=== PATIENT | male | born 1975 | race Caucasian/White ===

== ENCOUNTER 2019-12-16 08:36 | Observation (INO) | payer OTHER, SELFPAY ==
[2019-12-16] VITALS (8 sets, daily range): BP systolic 128–185; BP diastolic 75–115; PULSE 73–103; RESP 14–21; TEMP 36.4–36.9; O2SAT 96–99; BMI 22.9
--- NOTE | 2019-12-16 08:51 | ECG_ITS ---
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 Measurements Intervals [place] Rate: 93 P: 71 AL: 180 QRS: 98 QRSD: 84 T: 46 QT: 334 QTc: 417 Interpretive Statements SINUS RHYTHM BORDERLINE RIGHT AXIS DEVIATION [QRS AXIS > 90] POSSIBLE RIGHT VENTRICULAR CONDUCTION DELAY [RSR (QR) IN V1/V2] No previous ECG available for comparison Electronically Signed On 12-16-2019 21:13:39 CDT by Kristopher Haro M.D. [id number]
--- NOTE | 2019-12-16 08:51 | XRR_ITS ---
PROCEDURE INFORMATION: Exam: XR Chest, 1 View Exam date and time: 12/16/2019 9:15 AM Age: 44 years old Clinical indication: Pain; Other: Chest tightness; Additional info: Left upper anterior chest pain this am TECHNIQUE: Imaging protocol: XR of the chest Views: 1 view. COMPARISON: No relevant prior studies available. FINDINGS: Lungs: Unremarkable. No consolidation. Pleural space: Unremarkable. No pleural effusion. No pneumothorax. Heart/Mediastinum: Unremarkable. No cardiomegaly. Bones/joints: Unremarkable. XR/XR chest 1V portable [id number] IMPRESSION: No acute findings.
--- NOTE | 2019-12-16 08:54 | W.ED.CHESTPA ---
HPI - Chest Pain General: Chief Complaint: Chest Pain Stated Complaint: CHEST TIGHTNESS Time Seen by Provider: 12/16/19 08:40 History of Present Illness: HPI narrative: Patient began to experience pain and tightness in the left side of his chest last night while at rest. He did have some shortness of breath nausea and diaphoresis. Symptoms continued this morning along with lightheadedness so the patient came to the emergency department. He appears to be in no distress but continues to have the pain and pressure which is well localized in the left lower chest. MD complaint: chest pain, chest heaviness and chest discomfort Onset (ago): day(s) (1) Timing of current episode: constant Prior episodes: No Onset: during rest Pain location: left chest Pain radiation: none Severity: moderate Quality: tightness and heaviness Relieving factors: nothing Exacerbating factors: nothing Review of Systems General: Reports: 10 or more systems reviewed and unremarkable except in HPI and below Card: Reports: chest pain [facility] PFSH: Social History Smoking and tobacco status: never smoked Physical Exam Const: COMMON NORMALS: no acute distress, healthy appearing and well nourished GENERAL APPEARANCE: cooperative and well developed HENMT: COMMON NORMALS: normocephalic and atraumatic HEAD & SCALP: normal to inspection, normocephalic and atraumatic Eye: GENERAL EYE: appearance normal, both eyes and all related structures Neck/C-Spine: COMMON NORMALS: full ROM, no lymphadenopathy and no meningeal signs GENERAL: Yes normal visual inspection CERVICAL SPINE: Yes cervical ROM normal and Yes normal cervical lordosis Chest: COMMONS NORMALS: normal inspection of the chest and normal palpation of entire chest wall Resp: COMMON NORMALS: normal respiratory effort, clear to auscultation bilaterally and percussion normal AUSCULTATION: clear to auscultation bilaterally PERCUSSION: percussion normal Cardio: COMMON NORMALS: regular rate, regular rhythm, S1 normal heart sound present and S2 normal heart sound present JUGULAR VENOUS DISTENTION: no JVD PALPATION: normal PMI RATE: regular rate RHYTHM: regular rhythm HEART SOUNDS: S1 normal heart sound present and S2 normal heart sound present GI: COMMON NORMALS: Soft to palpation and No hepatosplenomegaly present INSPECTION: Yes normal to inspection PALPATION: Yes Soft to palpation and Yes No hepatosplenomegaly present PERCUSSION: normal to percussion : COMMON NORMALS: Yes no CVA tenderness BLADDER/KIDNEY EXAM: Yes no CVA tenderness Back/Pelvis: COMMON NORMALS: no CVA tenderness, thoracic and lumbar spine normal to inspection and thoraco-lumbar ROM normal Extremity: COMMON NORMALS: normal to inspection, full ROM and capillary refill normal Neuro: MENINGEAL SIGNS: Yes no meningeal signs Skin: COMMON NORMALS: no rashes or lesions noted, no wounds and turgor normal GENERAL SKIN EXAM: no rashes or lesions noted, elasticity normal and turgor normal LESIONS: no lesions RASHES: no rashes TRAUMA: no lacerations or abrasions HAIR: normal NAILS: normal Course Vital Signs: Vital signs: Vital Signs Temperature 97.5 F L 12/16/19 08:41 Pulse Rate 79 12/16/19 09:55 Respiratory Rate 14 12/16/19 09:55 Blood Pressure 157/103 12/16/19 09:55 Pulse Oximetry 97 12/16/19 09:55 MDM - Chest Pain Lab Data: Labs: Lab Results 12/16/19 12/16/19 12/16/19 Range/Units 09:02 09:02 09:02 WBC 6.8 (4.0-10.0) 10^3/ uL RBC 5.42 H (4.1-5.3) 10^6/u L Hgb 16.1 (11.7-16.6) g/dL Hct 48.2 (42.0-52.0) % MCV 88.9 (80-94) fL MCH 29.7 (28.0-34.0) pg MCHC 33.4 (30.0-36.0) g/dL RDW 12.4 (12.1-15.1) % Plt Count 234 (130-400) 10^3/c mm MPV 8.6 (7.4-10.4) fL Neut % (Auto) 60.3 % Lymph % (Auto) 28.7 % Hernando % (Auto) 7.8 % Eos % (Auto) 1.9 % Baso % (Auto) 1.0 % Neut # (Auto) 4.1 (1.8-7.7) 10^3/u L Lymph # (Auto) 2.0 (0.8-4.8) 10^3/u L Hernando # (Auto) 0.5 (0.2-0.9) 10^3/u L Eos # (Auto) 0.1 (0.0-0.8) 10^3/u L Baso # (Auto) 0.1 (0.0-0.1) 10^3/u L Nucleated RBC % (a uto) 0 % Nucleated RBCs # 0.0 /100WBC D-Dimer 0.17 (0-0.59) ug/mIFE U Sodium 136 (136-145) mmol/L Potassium 3.6 (3.5-5.1) mmol/L Chloride 96 L (98-107) mmol/L Carbon Dioxide 23 (22-29) mmol/L Anion Gap 20.6 H (5-19) BUN 13 (6-20) mg/dL Creatinine 0.8 (0.7-1.2) mg/dL GFR Calculation 104.1 (90-130) mL/min Glucose 109 (65-115) mg/dL Calculated Osmolal ity 279 L (285-295) mOsm/k g Calcium 9.9 (8.5-10.5) mg/dL Total Bilirubin 0.4 (0.15-1.2) mg/dL AST 34 (0-40) U/L ALT 49 H (0-41) U/L Alkaline Phosphata se 118 (40-130) IU/L Troponin T Baselin e (0-15) ng/L NT-Pro-B Natriuret Pep 5 (0-125) pg/mL Total Protein 8.0 (6.6-8.7) g/dL Albumin 5.1 (3.5-5.2) g/dL Globulin 2.9 (1.3-4.6) g/dL 12/15/ Range/Units 09:02 WBC (4.0-10.0) 10^3/ uL RBC (4.1-5.3) 10^6/u L Hgb (11.7-16.6) g/dL Hct (42.0-52.0) % MCV (80-94) fL MCH (28.0-34.0) pg MCHC (30.0-36.0) g/dL RDW (12.1-15.1) % Plt Count (130-400) 10^3/c mm MPV (7.4-10.4) fL Neut % (Auto) % Lymph % (Auto) % Hernando % (Auto) % Eos % (Auto) % Baso % (Auto) % Neut # (Auto) (1.8-7.7) 10^3/u L Lymph # (Auto) (0.8-4.8) 10^3/u L Hernando # (Auto) (0.2-0.9) 10^3/u L Eos # (Auto) (0.0-0.8) 10^3/u L Baso # (Auto) (0.0-0.1) 10^3/u L Nucleated RBC % (a uto) % Nucleated RBCs # /100WBC D-Dimer (0-0.59) ug/mIFE U Sodium (136-145) mmol/L Potassium (3.5-5.1) mmol/L Chloride (98-107) mmol/L Carbon Dioxide (22-29) mmol/L Anion Gap (5-19) BUN (6-20) mg/dL Creatinine (0.7-1.2) mg/dL GFR Calculation (90-130) mL/min Glucose (65-115) mg/dL Calculated Osmolal ity (285-295) mOsm/k g Calcium (8.5-10.5) mg/dL Total Bilirubin (0.15-1.2) mg/dL AST (0-40) U/L ALT (0-41) U/L Alkaline Phosphata se (40-130) IU/L Troponin T Baselin e 6 (0-15) ng/L NT-Pro-B Natriuret Pep (0-125) pg/mL Total Protein (6.6-8.7) g/dL Albumin (3.5-5.2) g/dL Globulin (1.3-4.6) g/dL Discharge Plan Discharge Patient Disposition: Admitted As Inpatient Admit Provider: Chrystal Abraham Clinical Impression: Unstable angina pectoris Condition: Stable Coding Level of Care Code ED Combustion Analyst for Chg Fwd Exam Comprehensive
[2019-12-16] MEDS: nitroglycerin 0.4 mg sublingual Tablet SUBLINGUAL (09:01)
--- NOTE | 2019-12-16 09:07 | PC.NURSE ---
Pt states chest pain went from a 2/10 to a 1/[address] Weaver informed.
[2019-12-16] MEDS: nitroglycerin 1 gm/inch oint Pkt 1 INCH TOPICAL (09:16)
[2019-12-16 09:18] LABS: Basophils # 0.1 10^3/uL (0.0-0.1); Eosinophils # 0.1 10^3/uL (0.0-0.8); Eosinophils % 1.9 %; Hematocrit 48.2 % (42.0-52.0); Hemoglobin 16.1 g/dL (11.7-16.6); Lymphocytes % 28.7 %; Mean Corpuscular HGB Conc 33.4 g/dL (30.0-36.0); Mean Corpuscular Hemoglobin 29.7 pg (28.0-34.0); Mean Corpuscular Volume 88.9 fL (80-94); Mean Platelet Volume 8.6 fL (7.4-10.4); Monocytes # 0.5 10^3/uL (0.2-0.9); Monocytes % 7.8 %; Neutrophils # 4.1 10^3/uL (1.8-7.7); Neutrophils % 60.3 %; Nucleated Red Blood Cells % 0 %; Platelet Count 234 10^3/cmm (130-400); Red Blood Count 5.42 10^6/uL (4.1-5.3); Red Cell Distribution Width 12.4 % (12.1-15.1); White Blood Count 6.8 10^3/uL (4.0-10.0)
[2019-12-16 09:35] LABS: Troponin(5th) Baseline 6 ng/L (0-15)
[2019-12-16 09:40] LABS: D Dimer 0.17 ug/mIFEU (0-0.59)
[2019-12-16 09:44] LABS: Alanine Aminotransferase 49 U/L (0-41); Albumin Level 5.1 g/dL (3.5-5.2); Alkaline Phosphatase 118 IU/L (40-130); Anion Gap 20.6 (5-19); Aspartate Amino Transferase 34 U/L (0-40); Blood Urea Nitrogen 13 mg/dL (6-20); Calcium 9.9 mg/dL (8.5-10.5); Carbon Dioxide 23 mmol/L (22-29); Chloride 96 mmol/L (98-107); Globulin 2.9 g/dL (1.3-4.6); Glomerular Filtration Rate 104.1 mL/min (90-130); Glucose 109 mg/dL (65-115); NT Pro B Type Natriuretic Pept 5 pg/mL (0-125); Osmolality Calculated 279 mOsm/kg (285-295); Potassium 3.6 mmol/L (3.5-5.1); Sodium 136 mmol/L (136-145); Total Bilirubin 0.4 mg/dL (0.15-1.2)
--- NOTE | 2019-12-16 10:51 | ECG_ITS ---
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 Measurements Intervals [place] Rate: 80 P: 55 VA: 166 QRS: 84 QRSD: 87 T: 37 QT: 359 QTc: 414 Interpretive Statements SINUS RHYTHM Compared to ECG 12/16/2019 08:51:36 No significant changes Electronically Signed On 12-16-2019 21:14:33 CDT by Kristopher Haro M.D. [email or web address] [email or web address] [email or web address] medical centerTissueInformaticsuniversity hospitals portage [facility].[email or web address]/store/OM/[id number]
--- NOTE | 2019-12-16 11:03 | P.HP_ITS ---
Providers/Chief Complaint Admitting Physician: Chrystal Abraham DO Chief Complaint: CHEST TIGHTNESS History of Present Illness Eliezer Guadalupe is a 44 year old male that is otherwise in good health that presented to the emergency department for chest pressure. Patient stated that he was sitting at his desk this morning doing paperwork when he began experiencing chest pressure in the left side of his chest. He stated that with this chest pressure he had dizziness and sweating and clamminess in his hands. Patient reported he came to the ER for further evaluation and treatment due to the pain. He reports that he was previously diagnosed with hypertension was on medication approximately 10 years ago but was taken off by his primary care provider as his blood pressures had remained normal. Patient stated that he is otherwise fairly active, has not noticed any dyspnea on exertion, no exertional chest pain or pressure. He reports that it felt as a heaviness on his chest, no sharp discomfort. Patient denies any recent heavy lifting or increasing physical activity. He denies any recent illness, no fevers or chills, no expo sure to anyone under investigation are positive for CO VID-19. Patient states that nitroglycerin did improve his pain. Patient was seen and evaluated in the emergency department due to left-sided ch est pressure with associated dizziness and diaphoresis with improvement with nitroglycerin hospitalist was called for observation placement. Review of Systems Const: Denies: fever(s) or chills Eyes: Denies: change in vision ENMT: Denies: nasal congestion Card: Reports: chest pain; Denies: palpitations or edema Resp: Denies: dyspnea, productive cough or hemoptysis GI: Denies: abdominal pain, nausea, vomiting, diarrhea, constipation, hematochezia or melena : Denies: dysuria or hematuria Musc: Denies: extremity pain or muscle cramps Skin/Breast: Denies: rash or new lesions Neuro: Denies: headache(s) or dizziness Psych: Denies: anxiety or depression Endo: Denies: polyuria or hot flashes Rivera/Lymph: Denies: easy bruising or easy bleeding Medications/Allergies Home Medications Medication Instructions Recorded Confirmed Last Taken Type No Known Home Medications 12/16/19 12/16/19 Unknown History Allergies Allergy/AdvReac Type Severity Reaction Status Date / Time No Known Allergies Allergy Verified 12/16/19 08:51 PFSH Acute PFSH: Medical History (Updated 12/16/19 @ 11:06 by Chrystal Abraham DO) Hypertension Surgical History (Updated 12/16/19 @ 11:06 by Chrystal Abraham DO) No pertinent past surgical history Family History (Updated 12/16/19 @ 11:07 by Chrystal Abraham DO) Father Atrial fibrillation Grandmother Stroke Social History (Updated 12/16/19 @ 11:08 by Chrystal Abraham DO) Smoking and tobacco status: never smoked Alcohol intake: current Substance/Drug Use: never Marital status: Vitals/I&O/Wt Last Vital Signs Temp 97.5 F L 12/16/19 08:41 Pulse 79 12/16/19 09:55 Resp 14 12/16/19 09:55 BP 157/103 12/16/19 09:55 Pulse Ox 97 12/16/19 09:55 Weight last 48 hrs Weight 72.575 kg Physical Exam Const: COMMON NORMALS: patient oriented x3 and alert GENERAL APPEARANCE: cooperative ORIENTATION/CONSCIOUSNESS: Yes awake, Yes oriented to person, Yes oriented to place and Yes oriented to time HENMT: COMMON NORMALS: normocephalic and atraumatic HEAD & SCALP: normocephalic and atraumatic Eye: COMMON NORMALS: Equal, round and reactive pupils present PUPIL: Yes Equal, round and reactive pupils present Neck/C-Spine: COMMON NORMALS: supple GENERAL: Yes normal visual inspection Chest: OTHER: No pain with palpation over the anterior chest wall Resp: COMMON NORMALS: normal respiratory effort and clear to auscultation bilaterally EFFORT & INSPECTION: Yes able to speak in complete sentences AUSCULTATION: clear to auscultation bilaterally, no rhonchi and no wheezes Cardio: COMMON NORMALS: regular rate, regular rhythm and No murmurs present (Cardio) RATE: regular rate RHYTHM: regular rhythm GI: COMMON NORMALS: Soft to palpation and non-tender INSPECTION: No abdo rosales distension AUSCULTATION: Yes normoactive bowel sounds PALPATION: Yes Soft to palpation : COMMON NORMALS: Yes no CVA tenderness BLADDER/KIDNEY EXAM: Yes no CVA tenderness Back/Pelvis: COMMON NORMALS: no CVA tenderness Extremity: COMMON NORMALS: no clubbing, cyanosis or edema and no calf tenderness Neuro: COMMON NORMALS: patient oriented x3, CN's II-XII intact bilaterally, moves all extremities and no focal motor deficits SENSORIUM/ORIENTATION: Yes alert, Yes oriented to person, Yes oriented to place and Yes oriented to time SPEECH: speech normal Psych: COMMON NORMALS: mental status grossly normal and cooperative Skin: COMMON NORMALS: no rashes or lesions noted GENERAL SKIN EXAM: no rashes or lesions noted Data : 12/16/19 09:02 12/16/19 09:02 CXR: I personally reviewed and interpreted this imaging study as follows: Radiologist's impression: FINDINGS: Lungs: Unremarkable. No consolidation. Pleural space: Unremarkable. No pleural effusion. No pneumothorax. Heart/Mediastinum: Unremarkable. No cardiomegaly. Bones/joints: Unremarkable. XR/XR chest 1V portable [id number] IMPRESSION: No acute findings. A&P Assessment and plan (1) Chest pain: Chest pain located over the left anterior chest wall with associated diaphoresis and dizziness Improved with nitro [place] Placed on observation SHELBY as needed for pain with serial EKG and troponin Plan for treadmill stress test today, patient remains n.p.o. at this time for treadmill stress test Discussed with patient and his , they verbalized understanding agree with plan Patient is hypertensive in the emergency department, discussed with him if blood pressures remain elevated he will likely require antihypertensive therapy. Status: Acute (2) Hypertension: Patient reports previously he was on blood pressure medication, cannot recall his prior medication Patient reports that he was taken off of the medication approximately 10 years ago as it is a very low-dose and his blood pressures were well controlled Patient has elevated blood pressure in the emergency department with concern for chest pain, if blood pressure remains elevated will start on lisinopril 10 mg daily. Status: Acute Additional A&P Information Patient to be placed on observation with serial EKG and troponin, oxygen per protocol, telemetry with plan for treadmill stress test today. Attestations Medical Necessity Statement*: Observation due to chest pain, expected stay less than 2 midnights Coding Level of Care Code Acute Direct Entry Midwife for Romana Fwd Exam Comprehensive Diagnoses Chest pain R07.9 Hypertension I10
[2019-12-16 11:32] LABS: Troponin 5 2HR Delta 0 ABS# (0-10)
--- NOTE | 2019-12-16 11:40 | ECG_ITS ---
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 Interpretive Statements NAME OF STUDY: TREADMILL STRESS TEST INDICATION: Chest Pain, EXERCISE DATA: The patient was exercised by Jhonny protocol. Baseline heart rate was 81 beats per minute. Baseline blood pressure was 156/87 millimeters of mercury. Target heart rate was 174 beats per minute. Maximum heart rate achieved was 170, which was 97% of the target heart rate. Maximum blood pressure was 217/93 millimeters of mercury. Total exercise time was 10 minutes 30 seconds. Maximum METs achieved was 13.5, maximum VO2 was 47.3. The reason for ending the test was maximum effort achieved. The patient complained of shortness of breath during the stress test, which then resolved at the end of the test. ELECTROCARDIOGRAM: BASELINE: Sinus rhythm, right axis, possible anterior wall myocardial infarction otherwise lead placement can result in poor R wave progression, no significant ST-T changes at the baseline noted. EXERCISE: At the peak exercise level, no significant ST-T changes suggestive of ischemia noted. RECOVERY: During the recovery period, heart rate dropped appropriately. No significant ST-T changes in the recovery suggestive of ischemia noted. CONCLUSION: 1. Exercise capacity good. 2. Heart rate response was appropriate. 3. Blood pressure response was hypertensive. 4. Symptoms not suggestive of ischemia. 5. Electrocardiogram portion of the stress test was not suggestive of ischemia. Electronically Signed On 12-20-2019 12:08:22 CDT by Kristopher Haro M.D. [email or web address] [email or web address] [email or web address] [email or web address]/store/[id number]
[2019-12-16] MEDS: sodium chloride 0.9% 1,000 ML 30 ML IV (12:01)
[2019-12-16] MEDS: lisinopril 10 mg Tablet PO (12:02)
[2019-12-16 12:22] LABS: Chol HDL Ratio 3.84 mg/dL (1.0-5.00); Cholesterol 238 mg/dL (0-200); HDL Cholesterol 62 mg/dL (60-100); LDL Cholesterol Calculated 151 mg/dL (50-129); LDL HDL Ratio 2.44 RATIO (0.00-3.22); Triglycerides 124 mg/dL (0-150)
[2019-12-16 14:09] LABS: INR 0.81 (0.8-1.2)
--- NOTE | 2019-12-16 15:08 | P.DS_ITS ---
Discharge Providers Date of Admission: 12/16/19 10:31 Date of Discharge: December 16, 2019 Attending Provider at Admission: Chrystal Abraham DO Attending Provider at Discharge: Chrystal Abraham DO Diagnoses at Discharge Discharge Diagnosis (1) Chest pain: Status: Acute (2) Hypertension: Status: Acute Reason for Visit Reason for Visit: CHEST TIGHTNESS Hospital Course Hospital Course: Patient was seen and evaluated in the emergency department due to concern for chest pressure. Placed on observation and kept n.p.o. for stress test. Patient had treadmill stress test performed which was read by cardiology, no evidence of any ischemic changes. Patient improved. He was started on lisinopril 10 mg daily due to concern for elevated blood pressure. He was also noted to have elevated cholesterol, this was discussed with patient and diet and lifestyle modifications recommended. Discussed with patient to follow-up with his primary care provider and if he continues to have elevated cholesterol would recommend starting statin medication. Discussed with patient negative stress test and plan for discharge to home with close follow-up, he verbalized understanding and agreed with plan. Physical Exam Const: COMMON NORMALS: patient oriented x3 and alert GENERAL APPEARANCE: cooperative ORIENTATION/CONSCIOUSNESS: Yes awake, Yes oriented to person, Yes oriented to place and Yes oriented to time HENMT: COMMON NORMALS: normocephalic and atraumatic HEAD & SCALP: normocephalic and atraumatic Eye: COMMON NORMALS: Equal, round and reactive pupils present PUPIL: Yes Equal, round and reactive pupils present Neck/C-Spine: COMMON NORMALS: supple GENERAL: Yes normal visual inspection Chest: OTHER: No pain with palpation over the anterior chest wall Resp: COMMON NORMALS: normal respiratory effort and clear to auscultation bilaterally EFFORT & INSPECTION: Yes able to speak in complete sentences AUSCULTATION: clear to auscultation bilaterally, no rhonchi and no wheezes Cardio: COMMON NORMALS: regular rate, regular rhythm and No murmurs present (Cardio) RATE: regular rate RHYTHM: regular rhythm GI: COMMON NORMALS: Soft to palpation and non-tender INSPECTION: No abdominal distension AUSCULTATION: Yes normoactive bowel sounds PALPATION: Yes Soft to palpation Extremity: COMMON NORMALS: no clubbing, cyanosis or edema and no calf tenderne ss Neuro: COMMON NORMALS: patient oriented x3, CN's II-XII intact bilaterally, moves all extremities and no focal motor deficits SENSORIUM/ORIENTATION: Yes alert, Yes oriented to person, Yes oriented to place and Yes oriented to time SPEECH: speech normal Psych: COMMON NORMALS: mental status grossly normal and cooperative Skin: COMMON NORMALS: no rashes or lesions noted GENERAL SKIN EXAM: no rashes or lesions noted Discharge Data Data Completed and Pending: Completed Studies During Hospitalization Category Date Time Status Cardiac Stress Te st Request Routine Exams 12/16/19 11:40 Draft XR chest 1V harlan ble [id number] Stat Exams 12/16/19 08:51 Completed Pending at discharge Category Date Time Status Troponin(5th) 6 h our. Timed Lab 12/16/19 14:51 Ordered Labs from last 24 hours 12/16/19 12/16/19 12/16/19 11:02 09:02 09:02 WBC RBC Hgb Hct MCV MCH MCHC RDW Plt Count MPV Neut % (Auto) Lymph % (Auto) [place] % (Auto) Eos % (Auto) Baso % (Auto) Neut # (Auto) Lymph # (Auto) [place] # (Auto) Eos # (Auto) Baso # (Auto) Nucleated RBC % (a uto) Nucleated RBCs # PT 11.40 INR 0.81 D-Dimer Sodium Potassium Chloride Carbon Dioxide Anion Gap BUN Creatinine GFR Calculation Glucose Calculated Osmolal ity Calcium Total Bilirubin AST ALT Alkaline Phosphata se Troponin T Baselin e Troponin T [address] [place] 6.00 Delta Troponin T 0 NT-Pro-B Natriuret Pep Total Protein Albumin Globulin Triglycerides 124 Cholesterol 238 H LDL Cholesterol, C alc 151 H HDL Cholesterol 62 LDL/HDL Ratio 2.44 Cholesterol/HDL Ra dandre 3.84 12/16/19 12/16/19 12/16/19 09:02 09:02 09:02 WBC RBC Hgb Hct MCV MCH MCHC RDW Plt Count MPV Neut % (Auto) Lymph % (Auto) [place] % (Auto) Eos % (Auto) Baso % (Auto) Neut # (Auto) Lymph # (Auto) [place] # (Auto) Eos # (Auto) Baso # (Auto) Nucleated RBC % (a uto) Nucleated RBCs # PT INR D-Dimer 0.17 Sodium 136 Potassium 3.6 Chloride 96 L Carbon Dioxide 23 Anion Gap 20.6 H BUN 13 Creatinine 0.8 GFR Calculation 104.1 Glucose 109 Calculated Osmolal ity 279 L Calcium 9.9 Total Bilirubin 0.4 AST 34 ALT 49 H Alkaline Phosphata se 118 Troponin T Baselin e 6 Troponin T [address] [place] Delta Troponin T NT-Pro-B Natriuret Pep 5 Total Protein 8.0 Albumin 5.1 Globulin 2.9 Triglycerides Cholesterol LDL Cholesterol, C alc HDL Cholesterol LDL/HDL Ratio Cholesterol/HDL Ra dandre 12/16/19 09:02 WBC 6.8 RBC 5.42 H Hgb 16.1 Hct 48.2 MCV 88.9 MCH 29.7 MCHC 33.4 RDW 12.4 Plt Count 234 MPV 8.6 Neut % (Auto) 60.3 Lymph % (Auto) 28.7 [place] % (Auto) 7.8 Eos % (Auto) 1.9 Baso % (Auto) 1.0 Neut # (Auto) 4.1 Lymph # (Auto) 2.0 [place] # (Auto) 0.5 Eos # (Auto) 0.1 Baso # (Auto) 0.1 Nucleated RBC % (a uto) 0 Nucleated RBCs # 0.0 PT INR D-Dimer Sodium Potassium Chloride Carbon Dioxide Anion Gap BUN Creatinine GFR Calculation Glucose Calculated Osmolal ity Calcium Total Bilirubin AST ALT Alkaline Phosphata se Troponin T Baselin e Troponin T [address] [place] Delta Troponin T NT-Pro-B Natriuret Pep Total Protein Albumin Globulin Triglycerides Cholesterol LDL Cholesterol, C alc HDL Cholesterol LDL/HDL Ratio Cholesterol/HDL Ra dandre Vitals: Last Vital Signs Temp 98.5 F 12/16/19 11:40 Pulse 103 H 12/16/19 13:00 Resp 18 12/16/19 13:00 BP 128/80 12/16/19 13:00 Pulse Ox 99 12/16/19 11:40 Discharge Plan Discharge Patient Disposition: Home, Self-Care Condition: Stable Prescriptions: New lisinopril 10 mg Tablet 10 mg PO DAILY 30 Days Qty: 30 RF: 0 nitroglycerin [Nitrostat] 0.4 mg Tablet, Sublingual 0.4 mg sublingual Q5M PRN (Reason: Chest Pain) 30 Days Qty: 20 RF: 0 No Action No Known Home Medications RF: 0 Discharge Orders: Discharge Order (Routine); Ordered 12/16/19 Ordered By: Chrystal Abraham Referrals: Huey Cox MD [Physician] - (You have a hospital followup with Dr. Cox at [facility] on Friday. December 19 at 3:45pm.) Discharge Diet: Low Fat Discharge Activity: Increase activity as tolerated Activity Restrictions/Additional Instructions: Follow-up with Dr. Cox as scheduled on Friday Discharge to home with lisinopril 10 mg daily, this is to take for elevated blood pressure. Elevated cholesterol, 238, normal <200. Elevated LDL 151, normal is 50-129. Recommend diet modifications and recheck with PCP, if remains elevated may require cholesterol medication Discharge to home with nitroglycerin, sublingual tablet, uses medication as needed for chest pain or pressure. Take as prescribed, if more than 2 doses are required with no improvement of chest pain please present to the emergency department Call your physician or present to the ED for any acute illness or concern Discharge Attestations Time Spent in Discharge Care*: less than 30 min Quality Metrics Clinical Quality Measures During this hospital stay, did patient experience: None Coding Level of Care Code Acute [employer]iconductor Packages Tester for Romana Gomez Diagnoses Chest pain R07.9 Hypertension I10
--- NOTE | 2019-12-16 16:28 | PC.NURSE ---
pt tolerated stress test well.discharge instructions given and explained.pt verb understanding of instructions.discharged to er entrance at this time.spouse to drive pt home.
--- NOTE | 2019-12-20 09:01 | PC.SOCIAL ---
Patient called this am. Appt was listed on DC paperwork to see Dr Cox today at 3:45pm. Patient called this am to confirm and was told he does not have an appt and he has not been to clinic in 3 years and even then was a walk in. Per patient they told him they would not be able to see him today. This nurse called and spoke with same environmental compliance officer who indicates the same as above. He has only been seen there two times last time three years ago and both were walk ins. He is not established. Patient is agreeable to seeing MOVIE PRODUCER if needed. Retail Sales Specialist willing to make appt with Grace Ibarra MOVIE PRODUCER for tomorrow at 10:30am arrival time 10:15am. Notified patient of new appointment.
--- NOTE | 2019-12-20 09:23 | PC.SOCIAL ---
Talked with and per his discharge instruction if he has taken two nitro without relief of chest pain report to ED. He has done taken the two doses this am and still having chest tightness/ pain. Suggest returning to ED and advised they will do an EKG and lab work. Depending on result may require further testing. She verbalized understanding. He will return for evaluation.
== END 2019-12-16 16:31 | disposition home or self-care (01) ==
LOC: ER 10:18 → CSU 10:45
PROVIDERS: Admitting Provider Family Medicine; Emergency Provider Family Medicine; PCP Family Medicine; Visit Provider Family Medicine
DX: R07.89 Other chest pain (principal); I10 Essential (primary) hypertension; Z82.49 Family history of ischemic heart disease and other diseases of the circulatory system; Z82.3 Family history of stroke
CPT/HCPCS: 12345; 36415; 71045; 80053; 80061; 83880; 84484; 85025; 85378; 85610; 93005; 93017; 96374; 96375; 99283; 99285; G0378; J7030

== ENCOUNTER 2019-12-20 09:33 | Emergency (ER) | payer OTHER, SELFPAY ==
[2019-12-20 09:37] VITALS: BP 134/83; PULSE 83; RESP 16; TEMP 36.8; O2SAT 98; BMI 22.9
--- NOTE | 2019-12-20 10:24 | XRR_ITS ---
PROCEDURE INFORMATION: Exam: XR Chest, 1 View Exam date and time: 12/20/2019 10:47 AM Age: 44 years old Clinical indication: Chest pain; Type not specified TECHNIQUE: Imaging protocol: XR of the chest Views: Frontal portable upright view of the chest. COMPARISON: CR XR chest 1V portable [id number] 12/16/2019 9:03 AM FINDINGS: Lungs: The lungs are clear bilaterally. The pulmonary vasculature is normal. Pleural space: No pleural effusion. No pneumothorax. Heart/Mediastinum: The heart is normal in size and contour. Mediastinum: Stable. Bones/joints: Stable. XR/XR chest 1V portable [id number] IMPRESSION: No acute cardiopulmonary abnormality identified.
--- NOTE | 2019-12-20 10:24 | ECG_ITS ---
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 Measurements Intervals [place] Rate: 81 P: 52 [place]: 172 QRS: 92 QRSD: 85 T: 14 QT: 357 QTc: 416 Interpretive Statements SINUS RHYTHM BORDERLINE RIGHT AXIS DEVIATION [QRS AXIS > 90] Compared to ECG 12/16/2019 11:11:27 No significant changes Electronically Signed On 12-20-2019 16:53:30 CDT by Juanjose Alicea M.D. [id number]
[2019-12-20 10:43] LABS: Basophils # 0.1 10^3/uL (0.0-0.1); Eosinophils % 0.7 %; Hematocrit 43.9 % (42.0-52.0); Hemoglobin 14.6 g/dL (11.7-16.6); Lymphocytes % 16.3 %; Mean Corpuscular HGB Conc 33.3 g/dL (30.0-36.0); Mean Corpuscular Volume 90.3 fL (80-94); Mean Platelet Volume 8.7 fL (7.4-10.4); Monocytes # 0.4 10^3/uL (0.2-0.9); Monocytes % 6.3 %; Neutrophils # 4.5 10^3/uL (1.8-7.7); Neutrophils % 75.4 %; Nucleated Red Blood Cells % 0 %; Platelet Count 219 10^3/cmm (130-400); Red Blood Count 4.86 10^6/uL (4.1-5.3); Red Cell Distribution Width 12.6 % (12.1-15.1)
[2019-12-20 10:57] LABS: Anion Gap 18.7 (5-19); Blood Urea Nitrogen 11 mg/dL (6-20); Calcium 9.2 mg/dL (8.5-10.5); Carbon Dioxide 24 mmol/L (22-29); Chloride 100 mmol/L (98-107); Glucose 97 mg/dL (65-115); Lipase 21 U/L (13-60); Osmolality Calculated 282 mOsm/kg (285-295); Potassium 4.7 mmol/L (3.5-5.1); Sodium 138 mmol/L (136-145)
[2019-12-20 11:00] LABS: Troponin(5th) Baseline 6 ng/L (0-15)
--- NOTE | 2019-12-20 11:54 | ED_ITS ---
HPI - Chest Pain General: Chief Complaint: Chest Pain Stated Complaint: chest tightness Time Seen by Provider: 12/20/19 09:41 History of Present Illness: HPI narrative: 44-year-old male presents emergency room with complaint of chest pain. He was seen several days ago here with an episode of chest pain he had serial troponins which were negative. He also had a stress test that was negative. He had a regular exercise stress test he was discharged home on lisinopril and given sublingual nitro advised take it if he had any problems. He tolerated lisinopril well his blood pressure actually seem to be improving without any side effects from medication. This morning he had began having chest pain was sitting at his desk at rest he took 2 nitros 5 minutes apart he states with pain that is worse with at a 2 and is completely resolved now. Chest pain began 50 minutes prior to arrival the only thing he had to eat or drink this morning with some coffee and a glass of water. In his previous episode he was admitted by Dr. Abraham and also had the chest discomfort while at rest. His heart score is very low at 2. MD complaint: chest heaviness Pertinent past history: other Onset (ago): hour(s) Timing of current episode: episodic and now resolved Prior episodes: Yes Onset: during rest Pain location: substernal and left chest Pain radiation: none Severity: mild Pain scale (0-10): 2 Quality: tightness and heaviness Relieving factors: nitroglycerin Context: other (4 days ago seen in the emergency room evaluated and had negative stress test) Associated symptoms: Reports no associated symptoms; Deny abdominal pain, dyspnea, fever(s), nausea or vomiting Treatment prior to arrival: nitroglycerin (X2) Review of Systems Const: Denies: fever(s), chills, body aches, change in appetite, fatigue or malaise ENMT: Denies: throat pain, ear or mastoid pain, nasal discharge or nasal congestion Card: Denies: chest pain, edema, dyspnea on exertion or orthopnea Resp: Denies: dyspnea, productive cough or non-productive cough GI: Denies: abdominal pain, nausea, vomiting, hematemesis, coffee ground emesis, diarrhea, constipation, bloating, hematochezia or melena : Denies: flank pain, dysuria, urinary frequency or urinary urgency Skin/Breast: Denies: rash or pruritus PFSH ED PFSH: Medical History Hypertension Surgical History No pertinent past surgical history Family History Father Atrial fibrillation Grandmother Stroke Social History Smoking and tobacco status: never smoked Alcohol intake: current Marital status: Physical Exam Const: COMMON NORMALS: no acute distress GENERAL APPEARANCE: cooperative and comfortable ORIENTATION/CONSCIOUSNESS: Yes awake, Yes oriented to person, Yes oriented to place and Yes oriented to time HENMT: COMMON NORMALS: normocephalic, atraumatic, hearing grossly normal bilaterally, external ears normal, EAC's normal, TM's normal bilaterally, Normal nasal mucous membranes and turbinates present, moist oral mucous membranes and oropharynx normal HEAD & SCALP: normocephalic and atraumatic NOSE: Normal nasal mucous membranes and turbinates present EXTERNAL EAR: Yes external ears normal EXTERNAL AUDITORY CANAL: EAC's normal TYMPANIC MEMBRANE: TM's normal bilaterally Eye: COMMON NORMALS: Equal, round and reactive pupils present, EOMs intact bilaterally, conjunctivae normal and no scleral icterus CONJUNCTIVA: Yes conjunctivae normal PUPIL: Yes Equal, round and reactive pupils present Neck/C-Spine: COMMON NORMALS: full ROM, no lymphadenopathy, supple and no JVD Lymph: LYMPHATIC: no lymphadenopathy noted and no lymphedema noted Resp: COMMON NORMALS: normal respiratory effort, No retractions, No use of accessory muscles and clear to auscultation bilaterally AUSCULTATION: clear to auscultation bilaterally Cardio: COMMON NORMALS: no JVD, regular rate, regular rhythm and No murmurs present (Cardio) RATE: regular rate RHYTHM: regular rhythm GI: COMMON NORMALS: Soft to palpation and No hepatosplenomegaly present AUSCULTATION: Yes normoactive bowel sounds PALPATION: Yes Soft to palpation, No Tenderness to palpation present (GI), No Guarding due to palpation present (GI) and Yes No hepatosplenomegaly present Extremity: COMMON NORMALS: normal to inspection, capillary refill normal, no clubbing, cyanosis or edema, no calf tenderness and no pedal edema Neuro: SENSORIUM/ORIENTATION: Yes oriented to person, Yes oriented to place and Yes oriented to time Skin: COMMON NORMALS: no rashes or lesions noted GENERAL SKIN EXAM: no rashes or lesions noted Course Vital Signs: Vital signs: Vital Signs Temperature 98.2 F 12/20/19 09:37 Pulse Rate 70 12/20/19 14:00 Respiratory Rate 15 12/20/19 14:00 Blood Pressure 123/85 12/20/19 14:00 Pulse Oximetry 97 12/20/19 14:00 MDM - Chest Pain MDM Narrative: Medical decision making narrative: REviewed with patient waiting on second troponin. TRop sereis neg. WIll discharge home supsect GI cause. Pt asked to start ASA 81 mg and will set up fro stress testing. aLso started PPI and will have him follow up with PCP. Lab Data: Labs: Lab Results 12/20/19 12/20/19 12/20/19 Range/Units 10:30 10:30 10:30 WBC 6.0 (4.0-10.0) 10^3/ uL RBC 4.86 (4.1-5.3) 10^6/u L Hgb 14.6 (11.7-16.6) g/dL Hct 43.9 (42.0-52.0) % MCV 90.3 (80-94) fL MCH 30.0 (28.0-34.0) pg MCHC 33.3 (30.0-36.0) g/dL RDW 12.6 (12.1-15.1) % Plt Count 219 (130-400) 10^3/c mm MPV 8.7 (7.4-10.4) fL Neut % (Auto) 75.4 % Lymph % (Auto) 16.3 % [place] % (Auto) 6.3 % Eos % (Auto) 0.7 % Baso % (Auto) 1.0 % Neut # (Auto) 4.5 (1.8-7.7) 10^3/u L Lymph # (Auto) 1.0 (0.8-4.8) 10^3/u L [place] # (Auto) 0.4 (0.2-0.9) 10^3/u L Eos # (Auto) 0.0 (0.0-0.8) 10^3/u L Baso # (Auto) 0.1 (0.0-0.1) 10^3/u L Nucleated RBC % (a uto) 0 % Nucleated RBCs # 0.0 /100WBC Sodium 138 (136-145) mmol/L Potassium 4.7 (3.5-5.1) mmol/L Chloride 100 (98-107) mmol/L Carbon Dioxide 24 (22-29) mmol/L Anion Gap 18.7 (5-19) BUN 11 (6-20) mg/dL Creatinine 0.6 L (0.7-1.2) mg/dL GFR Calculation 145.0 H (90-130) mL/min Glucose 97 (65-115) mg/dL Calculated Osmolal ity 282 L (285-295) mOsm/k g Calcium 9.2 (8.5-10.5) mg/dL Troponin T Baselin e 6 (0-15) ng/L Troponin T 120 Min [place] (0-15) ng/L Delta Troponin T (0-10) ABS# Lipase 21 (13-60) U/L 12/20/19 Range/Units 12:17 WBC (4.0-10.0) 10^3/ uL RBC (4.1-5.3) 10^6/u L Hgb (11.7-16.6) g/dL Hct (42.0-52.0) % MCV (80-94) fL MCH (28.0-34.0) pg MCHC (30.0-36.0) g/dL RDW (12.1-15.1) % Plt Count (130-400) 10^3/c mm MPV (7.4-10.4) fL Neut % (Auto) % Lymph % (Auto) % [place] % (Auto) % Eos % (Auto) % Baso % (Auto) % Neut # (Auto) (1.8-7.7) 10^3/u L Lymph # (Auto) (0.8-4.8) 10^3/u L [place] # (Auto) (0.2-0.9) 10^3/u L Eos # (Auto) (0.0-0.8) 10^3/u L Baso # (Auto) (0.0-0.1) 10^3/u L Nucleated RBC % (a uto) % Nucleated RBCs # /100WBC Sodium (136-145) mmol/L Potassium (3.5-5.1) mmol/L Chloride (98-107) mmol/L Carbon Dioxide (22-29) mmol/L Anion Gap (5-19) BUN (6-20) mg/dL Creatinine (0.7-1.2) mg/dL GFR Calculation (90-130) mL/min Glucose (65-115) mg/dL Calculated Osmolal ity (285-295) mOsm/k g Calcium (8.5-10.5) mg/dL Troponin T Baselin e (0-15) ng/L Troponin T 120 Min [place] 6.00 (0-15) ng/L Delta Troponin T 0 (0-10) ABS# Lipase (13-60) U/L Discharge Plan Discharge Patient Disposition: Home, Self-Care Clinical Impression: Atypical chest pain, Hypertension, Chest pain due to GERD Condition: Stable Prescriptions: New pantoprazole 40 mg tablet,delayed release (DR/EC) 40 mg PO DAILY Qty: 30 RF: 0 No Action lisinopril 10 mg Tablet 10 mg PO DAILY 30 Days Qty: 30 RF: 0 nitroglycerin [Nitrostat] 0.4 mg Tablet, Sublingual 0.4 mg sublingual Q5M PRN (Reason: Chest Pain) 30 Days Qty: 20 RF: 0 Discharge Orders: Discharge Order (Routine); Ordered 12/20/19 Ordered By: eVrn Sims Referrals: Huey Cox MD [Primary Care Provider] - Discharge Diet: Usual diet Discharge Activity: Resume usual activity Activity Restrictions/Additional Instructions: Start pantoprazole. We will have you follow-up with your primary care doctor to recheck blood pressure within the next 3 to 5 days. If you have any further chest pain events return to the emergency room if they require nitroglycerin. Discharge Date/Time: 12/20/19 14:04 Coding Level of Care Code [employer] Delivery Consultant for Jackieg Fwd Exam Comprehensive
--- NOTE | 2019-12-20 12:24 | ECG_ITS ---
[facility] Test Date: 2019-12-20 Pat Name: Eliezer Guadalupe Department: Room: Gender: Male Airport Engineer: : 1975 Requested By: Vern Medrano Order Number: [id number] Nir MD: Juanjose Alicea M.D. Measurements Intervals [place] Rate: 70 P: 53 [place]: 178 QRS: 78 QRSD: 75 T: 24 QT: 354 QTc: 384 Interpretive Statements SINUS RHYTHM Compared to ECG 12/20/2019 09:47:45 No significant changes Electronically Signed On 12-20-2019 16:55:48 CDT by Juanjose Alicea M.D. [id number]
[2019-12-20 13:11] LABS: Troponin 5 2HR Delta 0 ABS# (0-10)
[2019-12-20 14:00] VITALS: BP 123/85; PULSE 70; RESP 15; O2SAT 97
--- NOTE | 2019-12-21 08:56 | DCPLANNER ---
mass spectrometry manager had message to speak with patient about getting established with a primary care physician. mass spectrometry manager spoke with patient, offered to get him established with a primary care physician. Patient stated that he [place] today [place] [facility] [place]
--- NOTE | 2019-12-28 15:28 | DCPLANNER ---
fabrication manager had message to schedule an out patient stress test for patient. fabrication manager faxed order to centralized scheduling, will call for appointment information.
--- NOTE | 2020-01-03 14:55 | DCPLANNER ---
Patient had a stress test scheduled for 01.04.20, and it has been cancelled.
== END 2019-12-20 14:04 | disposition home or self-care (01) ==
PROVIDERS: Emergency Provider Family Medicine; PCP Family Medicine
DX: R07.89 Other chest pain (principal); K21.9 Gastro-esophageal reflux disease without esophagitis; I10 Essential (primary) hypertension
CPT/HCPCS: 12345; 36415; 71045; 80048; 83690; 84484; 85025; 93005; 99283; 99284

== ENCOUNTER 2021-07-27 15:57 | Emergency (ER) | payer OTHER, SELFPAY ==
--- NOTE | 2021-07-27 16:04 | XR_ITS ---
WS: [id number] XR chest 1V portable [id number] REASON FOR EXAM: cp FINDINGS: The thoracic aorta is normal. The heart is normal. Minimal calcified granulomatous changes bilaterally. No active pulmonary parenchymal or pleural disease. Bony thorax intact without significant abnormality. XR/XR chest 1V portable [id number] IMPRESSION: No acute chest abnormality.
[2021-07-27 16:05] VITALS: BP 108/75; PULSE 116; RESP 16; TEMP 36.6; O2SAT 97; BMI 22.9
--- NOTE | 2021-07-27 16:33 | ECG_ITS ---
[facility] Test Date: 2021-07-27 Pat Name: Eliezer Guadalupe Department: Room: Gender: Male Study Assistant: : 1975 Requested By: Bernard Martinez Order Number: [id number] Loyola MD: Ramses Moreno M.D. Measurements Intervals [place] Rate: 109 P: 63 [place]: 136 QRS: 117 QRSD: 87 T: 39 QT: 320 QTc: 433 Interpretive Statements SINUS TACHYCARDIA POSSIBLE LEFT ATRIAL ENLARGEMENT [-0.1mV P-WAVE IN V1/V2] POSSIBLE RIGHT VENTRICULAR HYPERTROPHY [SOME/ALL OF: PROMINENT R IN V1, LATE TRANSITION, RAD, THALIA, SSS] Compared to ECG 12/20/2019 12:08:53 Atrial abnormality now present Sinus rhythm no longer present Electronically Signed On 07-27-2021 17:37:56 CHIMNEY REPAIRER by Ramses Moreno M.D. [id number]
--- NOTE | 2021-07-27 16:34 | W.ED.CHESTPA ---
Documented by User: JANIE Wilson 07/27/21 16:35 HPI - Chest Pain General: Chief Complaint: Chest Pain Stated Complaint: Heart racing and chest feeling kind of heavy Time Seen by Provider: 07/27/21 18:04 History of Present Illness: Patient complains about intermittent rapid heart rate that occurred since Friday says worse today feels some pressure in his left upper chest area and feels like his heart once a pound of his chest at times. Patient denies any recent illness. Denies any anxiety. Patient does not take any other medication besides his blood pressure medication. He said some just did not feel right in his left upper chest. He said he had an episode about a year and a half ago something similar and he had a plethora of tests done which includes a cardiac stress test and they were all negative. [facility] ED PFSH: Medical History Hypertension Surgical History No pertinent past surgical history Family History Father Atrial fibrillation Grandmother Stroke Social History Smoking and tobacco status: never smoked Alcohol intake: current Marital status: Course Vital Signs: Vital signs: Vital Signs Temperature 98.2 F 07/27/21 20:15 Pulse Rate 77 07/27/21 21:59 Respiratory Rate 18 07/27/21 21:59 Blood Pressure 135/86 07/27/21 21:59 Pulse Oximetry 99 07/27/21 21:59 MDM - Chest Pain Lab Data : 07/27/21 18:45 07/27/21 18:45 Radiology Impressions Chest X-Ray 07/27/21 16:04 IMPRESSION: No acute chest abnormality. Laboratory Results WBC 8.1 10^3/uL (4.0-10.0) 07/27/21 18:45 RBC 5.20 10^6/uL (4.1-5.3) 07/27/21 18:45 Hgb 15.7 g/dL (11.7-16.6) 07/27/21 18:45 Hct 46.3 % (42.0-52.0) 07/27/21 18:45 MCV 89.0 fl (80-94) 07/27/21 18:45 MCH 30.2 pg (28.0-34.0) 07/27/21 18:45 MCHC 33.9 g/dL (30.0-36.0) 07/27/21 18:45 RDW 12.5 % (12.1-15.1) 07/27/21 18:45 Plt Count 246 10^3/cmm (130-400) 07/27/21 18:45 MPV 8.5 fL (7.4-10.4) 07/27/21 18:45 Neut % (Auto) 73.4 % 07/27/21 18:45 Lymph % (Auto) 16.8 % 07/27/21 18:45 [place] % (Auto) 7.8 % 07/27/21 18:45 Eos % (Auto) 0.9 % 07/27/21 18:45 Baso % (Auto) 0.9 % 07/27/21 18:45 Neut # (Auto) 5.95 10^3/uL (1.8-7.7) 07/27/21 18:45 Lymph # (Auto) 1.4 10^3/uL (0.8-4.8) 07/27/21 18:45 [place] # (Auto) 0.6 10^3/uL (0.2-0.9) 07/27/21 18:45 Eos # (Auto) 0.1 10^3/uL (0.0-0.8) 07/27/21 18:45 Baso # (Auto) 0.1 10^3/uL (0.0-0.1) 07/27/21 18:45 Nucleated RBC % (auto) 0 % 07/27/21 18:45 Nucleated RBCs # 0.0 /100WBC 07/27/21 18:45 Sodium 140 mmol/L (136-145) 07/27/21 18:45 Potassium 4.4 mmol/L (3.5-5.1) 07/27/21 18:45 Chloride 101 mmol/L (98-107) 07/27/21 18:45 Carbon Dioxide 25 mmol/L (22-29) 07/27/21 18:45 Anion Gap 18.4 (5-19) 07/27/21 18:45 BUN 14 mg/dL (6-20) 07/27/21 18:45 Creatinine 0.7 mg/dL (0.7-1.2) 07/27/21 18:45 GFR Calculation 120.9 mL/min (90-130) 07/27/21 18:45 Glucose 91 mg/dL (65-115) 07/27/21 18:45 Calculated Osmolality 290 mOsm/kg (285-295) 07/27/21 18:45 Calcium 9.0 mg/dL (8.5-10.5) 07/27/21 18:45 Total Bilirubin 0.4 mg/dL (0.15-1.2) 07/27/21 18:45 AST 23 U/L (0-40) 07/27/21 18:45 ALT 26 U/L (0-41) 07/27/21 18:45 Alkaline Phosphatase 117 IU/L (40-130) 07/27/21 18:45 Troponin T Baseline 7 ng/L (0-15) 07/27/21 18:45 Troponin T 120 Minute 6.00 ng/L (0-15) 07/27/21 20:30 Delta Troponin T Not Reportable 07/27/21 20:30 Total Protein 7.0 g/dL (6.6-8.7) 07/27/21 18:45 Albumin 4.9 g/dL (3.5-5.2) 07/27/21 18:45 Globulin 2.1 g/dL (1.3-4.6) 07/27/21 18:45 TSH 1.17 uIU/mL (0.27-4.20) 07/27/21 18:45 TSH Cancelled 07/27/21 18:45 Discharge Plan Discharge Patient Disposition: Home Clinical Impression: Heart palpitations Condition: Stable Prescriptions: No Action pantoprazole 40 mg tablet,delayed release (DR/EC) 40 mg PO DAILY Qty: 30 0RF Discharge Orders: Discharge ED (Routine); Ordered 07/27/21 Ordered By: Kunal Heaton Referrals: Huey Cox MD [Primary Care Provider] - Discharge Diet: Regular Discharge Activity: Increase activity as tolerated Patient Instructions: Heart Palpitations (DC) Activity Restrictions/Additional Instructions: Follow-up with medical provider in the next 3 to 5 days for reevaluation. Talk with your primary care provider about getting a Holter monitor. Continue taking medications as previously prescribed. Return to the ER or your medical provider if condition worsens. Please read and understand discharge instructions. Thank you for choosing [facility] for your healthcare needs today. Please realize this is an emergency room and that we are providing you with a medical screening exam and this may not be complete and all inclusive of all the testing and or work up that you may need to determine your ailment or severity of your illness. It is very important that you follow up as instructed or that you return to the Emergency Department should you have concerns or if your condition changes or worsens in any way. Coding Level of Care Code ED Microsoft Infrastructure Consultant for Chg Fwd Exam Comprehensive Documented by User: FREDA Hickman 07/28/21 02:01 HPI - Chest Pain General: Chief Complaint: Chest Pain Stated Complaint: Heart racing and chest feeling kind of heavy Time Seen by Provider: 07/27/21 18:04 History of Present Illness: Patient presents to the ED with palpitations. Palpitations started earlier today. he felt some discomfort in left upper chest area and feels like his heart was trying to pound out of his chest at times. He also reports the last 3 days his blood pressure has been more elevated at home. Patient denies any recent illness. Denies any anxiety. here in the ED, hid symptoms have improved and he is not feeling the palpitations anymore and the chest discomfort is mild. Denies any nausea or diaphoresis during the episode. Patient does not take any other medication besides lisinopril for his pressure. He said some just did not feel right in his left upper chest. Patient said he had approximately 1 cup of coffee today which is his usual. He denies any recent use of supplements or energy drinks. he had an episode about a year and a half ago something similar and he had a plethora of tests done which includes a cardiac stress test and they were all negative. Associated symptoms: Reports palpitations; Deny abdominal pain, dyspnea, fever(s), nausea or vomiting Review of Systems Const: Denies: fever(s), chills or fatigue Eyes: Denies: change in vision or eye discomfort ENMT: Denies: throat pain, odynophagia, nasal discharge or nasal congestion Card: Reports: palpitations; Denies: chest pain, edema, swelling of feet/ankles, dyspnea on exertion or orthopnea Resp: Denies: dyspnea, productive cough or non-productive cough GI: Denies: abdominal pain, nausea, vomiting, diarrhea, constipation or hematochezia : Denies: flank pain, difficulty urinating, dysuria or hematuria Musc: Denies: neck pain, back pain or extremity swelling Skin/Breast: Denies: rash or new lesions Neuro: Denies: headache(s), numbness in extremities or weakness in extremities PFSH ED PFSH: Medical History Hypertension Surgical History No pertinent past surgical history Family History Father Atrial fibrillation Grandmother Stroke Social History Smoking and tobacco status: never smoked Alcohol intake: current Marital status: Physical Exam Const: COMMON NORMALS: no acute distress, patient oriented x3, healthy appearing and alert GENERAL APPEARANCE: cooperative and comfortable HENMT: COMMON NORMALS: normocephalic HEAD & SCALP: normocephalic MOUTH: Normal oral and palatal mucosa present THROAT: posterior oropharynx normal and uvula midline Eye: COMMON NORMALS: Equal, round and reactive pupils present and conjunctivae normal CONJUNCTIVA: Yes conjunctivae normal PUPIL: Yes Equal, round and reactive pupils present Neck/C-Spine: COMMON NORMALS: supple GENERAL: Yes normal visual inspection Resp: COMMON NORMALS: normal respiratory effort, No retractions, No use of accessory muscles and clear to auscultation bilaterally AUSCULTATION: clear to auscultation bilaterally Cardio: COMMON NORMALS: regular rate, regular rhythm, S1 normal heart sound present, S2 normal heart sound present, No gallops present (Cardio), No clicks present (Cardio), No murmurs present (Cardio) and Peripheral pulses 2+ throughout RATE: regular rate RHYTHM: regular rhythm HEART SOUNDS: S1 normal heart sound present and S2 normal heart sound present PERIPHERAL PULSES: Peripheral pulses 2+ throughout GI: COMMON NORMALS: Normal to inspection, nondistended, normoactive bowel sounds present, Soft to palpation, non-tender and no masses PALPATION: Yes Soft to palpation : COMMON NORMALS: Yes no CVA tenderness BLADDER/KIDNEY EXAM: Yes no CVA tenderness Back/Pelvis: COMMON NORMALS: no CVA tenderness Extremity: COMMON NORMALS: normal to inspection and no pedal edema Neuro: COMMON NORMALS: patient oriented x3 and moves all extremities SENSORIUM/ORIENTATION: Yes alert Skin: GENERAL SKIN EXAM: dry skin Course Vital Signs: Vital signs: Vital Signs Temperature 98.2 F 07/27/21 20:15 Pulse Rate 77 07/27/21 21:59 Respiratory Rate 18 07/27/21 21:59 Blood Pressure 135/86 07/27/21 21:59 Pulse Oximetry 99 07/27/21 21:59 MDM - Chest Pain Medical Decision Making Patient is a 45-year-old male who comes to the ED with palpitations. Symptoms started today. He felt some mild chest discomfort during episode. It resolved by the time patient got to the ED. Here in the ED patient is not having any current palpitations. Vitals stable. Patient appears nontoxic and in no acute distress or pain. Rest of exam is benign. Troponin negative. CBC and CMP were unremarkable. TSH normal. EKG showed normal sinus rhythm with no arrhythmia seen and no ST segment elevation or depression seen. Patient was diagnosed with heart palpitations. He was discharged home and told to follow-up with his PCP in 3 to 5 days for reevaluation. I told him that his PCP can get him set up with a Holter monitor. Return to ED precautions given. Patient understood and agreed with plan. Lab Data I reviewed the patient's lab results. : 07/27/21 18:45 07/27/21 18:45 Radiology Impressions Chest X-Ray 07/27/21 16:04 IMPRESSION: No acute chest abnormality. Laboratory Results WBC 8.1 10^3/uL (4.0-10.0) 07/27/21 18:45 RBC 5.20 10^6/uL (4.1-5.3) 07/27/21 18:45 Hgb 15.7 g/dL (11.7-16.6) 07/27/21 18:45 Hct 46.3 % (42.0-52.0) 07/27/21 18:45 MCV 89.0 fl (80-94) 07/27/21 18:45 MCH 30.2 pg (28.0-34.0) 07/27/21 18:45 MCHC 33.9 g/dL (30.0-36.0) 07/27/21 18:45 RDW 12.5 % (12.1-15.1) 07/27/21 18:45 Plt Count 246 10^3/cmm (130-400) 07/27/21 18:45 MPV 8.5 fL (7.4-10.4) 07/27/21 18:45 Neut % (Auto) 73.4 % 07/27/21 18:45 Lymph % (Auto) 16.8 % 07/27/21 18:45 [place] % (Auto) 7.8 % 07/27/21 18:45 Eos % (Auto) 0.9 % 07/27/21 18:45 Baso % (Auto) 0.9 % 07/27/21 18:45 Neut # (Auto) 5.95 10^3/uL (1.8-7.7) 07/27/21 18:45 Lymph # (Auto) 1.4 10^3/uL (0.8-4.8) 07/27/21 18:45 [place] # (Auto) 0.6 10^3/uL (0.2-0.9) 07/27/21 18:45 Eos # (Auto) 0.1 10^3/uL (0.0-0.8) 07/27/21 18:45 Baso # (Auto) 0.1 10^3/uL (0.0-0.1) 07/27/21 18:45 Nucleated RBC % (auto) 0 % 07/27/21 18:45 Nucleated RBCs # 0.0 /100WBC 07/27/21 18:45 Sodium 140 mmol/L (136-145) 07/27/21 18:45 Potassium 4.4 mmol/L (3.5-5.1) 07/27/21 18:45 Chloride 101 mmol/L (98-107) 07/27/21 18:45 Carbon Dioxide 25 mmol/L (22-29) 07/27/21 18:45 Anion Gap 18.4 (5-19) 07/27/21 18:45 BUN 14 mg/dL (6-20) 07/27/21 18:45 Creatinine 0.7 mg/dL (0.7-1.2) 07/27/21 18:45 GFR Calculation 120.9 mL/min (90-130) 07/27/21 18:45 Glucose 91 mg/dL (65-115) 07/27/21 18:45 Calculated Osmolality 290 mOsm/kg (285-295) 07/27/21 18:45 Calcium 9.0 mg/dL (8.5-10.5) 07/27/21 18:45 Total Bilirubin 0.4 mg/dL (0.15-1.2) 07/27/21 18:45 AST 23 U/L (0-40) 07/27/21 18:45 ALT 26 U/L (0-41) 07/27/21 18:45 Alkaline Phosphatase 117 IU/L (40-130) 07/27/21 18:45 Troponin T Baseline 7 ng/L (0-15) 07/27/21 18:45 Troponin T 120 Minute 6.00 ng/L (0-15) 07/27/21 20:30 Delta Troponin T Not Reportable 07/27/21 20:30 Total Protein 7.0 g/dL (6.6-8.7) 07/27/21 18:45 Albumin 4.9 g/dL (3.5-5.2) 07/27/21 18:45 Globulin 2.1 g/dL (1.3-4.6) 07/27/21 18:45 TSH 1.17 uIU/mL (0.27-4.20) 07/27/21 18:45 TSH Cancelled 07/27/21 18:45 EKG Data EKG 1: EKG interpretation date: 07/27/21 Interpretation: [address] [address] Electrocardiograph Report Signed Patient: Eliezer Guadalupe Unit #: [id number] : 1975 Age/Sex: 45 / M ADM Date: 07/27/21 Loc: ER Room/Bed: Attending Dr:Ordering Provider/Ordering MD: Cade Martinez Sr, RN HEART-BC Date of Service: 07/27/21 Procedure(s): ECG 12 lead EKG Accession Number(s): [id number] Report Number: [id number] ? [facility] ? Test Date:? ? 2021-07-27 Pat Name: ? ? Eliezer Guadalupe ? Department: ? Patient ID: ? [id number] ? Room: ? Gender: ? ? ? Male ? Retail Field Representative: ? :? 1975 ? Requested By: Bernard Martinez Order Number: [id number]? Reading MD: ? Ramses Moreno M.D. ? Measurements Intervals? [place]? Rate: ? 109? P:? 63 OR: ? 136? QRS:? 117 QRSD: ? 87 ? T:? 39 QT: ? 320? QTc:? 433? Interpretive Statements SINUS TACHYCARDIA POSSIBLE LEFT ATRIAL ENLARGEMENT? [-0.1mV P-WAVE IN V1/V2] POSSIBLE RIGHT VENTRICULAR HYPERTROPHY? [SOME/ALL OF: PROMINENT R IN V1, LATE TRANSITION, RAD, THALIA, SSS] Compared to ECG 12/20/2019 12:08:53 Atrial abnormality now present Sinus rhythm no longer present Electronically Signed On 07-27-2021 17:37:56 HAND SEWER by Ramses Moreno M.D. [id number] Dictated By: Ramses Moreno MD Signed By: Ramses Moreno MD Signed Date/Time: 07/27/21 1739 DD/ 1614 EKG 2: EKG interpretation date: 07/27/21 Interpretation: Sinus rhythm, 83 bpm, no ST segment elevation or depression seen. No signs of any arrhythmia noted. Discharge Plan Discharge Patient Disposition: Home Clinical Impression: Heart palpitations Condition: Stable Prescriptions: No Action pantoprazole 40 mg tablet,delayed release (DR/EC) 40 mg PO DAILY Qty: 30 0RF Discharge Orders: Discharge ED (Routine); Ordered 07/27/21 Ordered By: Kunal Heaton Referrals: Huey Cox MD [Primary Care Provider] - Discharge Diet: Regular Discharge Activity: Increase activity as tolerated Patient Instructions: Heart Palpitations (DC) Activity Restrictions/Additional Instructions: Follow-up with medical provider in the next 3 to 5 days for reevaluation. Talk with your primary care provider about getting a Holter monitor. Continue taking medications as previously prescribed. Return to the ER or your medical provider if condition worsens. Please read and understand discharge instructions. Thank you for choosing [facility] for your healthcare needs today. Please realize this is an emergency room and that we are providing you with a medical screening exam and this may not be complete and all inclusive of all the testing and or work up that you may need to determine your ailment or severity of your illness. It is very important that you follow up as instructed or that you return to the Emergency Department should you have concerns or if your condition changes or worsens in any way. Coding Level of Care Code ED Microsoft Infrastructure Consultant for Romana Gomez Exam Comprehensive
--- NOTE | 2021-07-27 18:33 | ECG_ITS ---
[facility] Test Date: 2021-07-27 Pat Name: Eliezer Guadalupe Department: Room: Gender: Male Customer Support Analyst: : 1975 Requested By: Bernard Martinez Order Number: [id number] Nir MD: Ramses Moreno M.D. Measurements Intervals [place] Rate: 83 P: 61 IA: 168 QRS: 99 QRSD: 104 T: 48 QT: 346 QTc: 408 Interpretive Statements SINUS RHYTHM BORDERLINE RIGHT AXIS DEVIATION [QRS AXIS > 90] INCOMPLETE RIGHT BUNDLE BRANCH BLOCK [90+ ms QRS DURATION, TERMINAL R IN V1/V2, 40+ ms S IN I/aVL/V4/V5/V6] Compared to ECG 07/27/2021 16:14:07 Incomplete right bundle-branch block now present Sinus tachycardia no longer present Atrial abnormality no longer present Electronically Signed On 07-28-2021 0:45:15 CLEANING TECHNICIAN by Ramses Moreno M.D. [id number] f
[2021-07-27 18:41] VITALS: BP 134/82; PULSE 91; RESP 16; TEMP 36.9; O2SAT 99
[2021-07-27 18:58] LABS: Basophils # 0.1 10^3/uL (0.0-0.1); Basophils % 0.9 %; Eosinophils # 0.1 10^3/uL (0.0-0.8); Eosinophils % 0.9 %; Hematocrit 46.3 % (42.0-52.0); Hemoglobin 15.7 g/dL (11.7-16.6); Lymphocytes # 1.4 10^3/uL (0.8-4.8); Lymphocytes % 16.8 %; Mean Corpuscular HGB Conc 33.9 g/dL (30.0-36.0); Mean Corpuscular Hemoglobin 30.2 pg (28.0-34.0); Mean Platelet Volume 8.5 fL (7.4-10.4); Monocytes # 0.6 10^3/uL (0.2-0.9); Monocytes % 7.8 %; Neutrophils # 5.95 10^3/uL (1.8-7.7); Neutrophils % 73.4 %; Nucleated Red Blood Cells % 0 %; Platelet Count 246 10^3/cmm (130-400); Red Cell Distribution Width 12.5 % (12.1-15.1); White Blood Count 8.1 10^3/uL (4.0-10.0)
[2021-07-27 19:46] LABS: Troponin(5th) Baseline 7 ng/L (0-15)
[2021-07-27 19:54] LABS: Alanine Aminotransferase 26 U/L (0-41); Albumin Level 4.9 g/dL (3.5-5.2); Alkaline Phosphatase 117 IU/L (40-130); Aspartate Amino Transferase 23 U/L (0-40); Blood Urea Nitrogen 14 mg/dL (6-20); Carbon Dioxide 25 mmol/L (22-29); Chloride 101 mmol/L (98-107); Globulin 2.1 g/dL (1.3-4.6); Glomerular Filtration Rate 120.9 mL/min (90-130); Glucose 91 mg/dL (65-115); Osmolality Calculated 290 mOsm/kg (285-295); Sodium 140 mmol/L (136-145); Thyroid Stimulating Hormone 1.17 uIU/mL (0.27-4.20); Total Bilirubin 0.4 mg/dL (0.15-1.2)
[2021-07-27 20:15] VITALS: BP 135/86; PULSE 86; RESP 14; TEMP 36.8; O2SAT 99
[2021-07-27 20:32] LABS: Anion Gap 18.4 (5-19); Potassium 4.4 mmol/L (3.5-5.1)
[2021-07-27 21:59] VITALS: BP 135/86; PULSE 77; RESP 18; O2SAT 99
== END 2021-07-27 22:00 | disposition home or self-care (01) ==
PROVIDERS: Emergency Medicine; Nurse Practitioner Family; Emergency Provider Physician Assistant; PCP Family Medicine
DX: R00.2 Palpitations (principal); I10 Essential (primary) hypertension
CPT/HCPCS: 71045; 80053; 84443; 84484; 85025; 93005; 99283

== ENCOUNTER 2022-10-18 07:53 | Outpatient (CLI) | payer OTHER, SELFPAY ==
[2022-10-18 08:21] LABS: Basophils # 0.1 10^3/uL (0.0-0.1); Basophils % 0.9 %; Eosinophils # 0.1 10^3/uL (0.0-0.8); Eosinophils % 1.7 %; Hematocrit 45.6 % (42.0-52.0); Lymphocytes # 1.5 10^3/uL (0.8-4.8); Lymphocytes % 28.1 %; Mean Corpuscular HGB Conc 32.9 g/dL (30.0-36.0); Mean Corpuscular Hemoglobin 29.6 pg (28.0-34.0); Mean Corpuscular Volume 89.9 fl (80-94); Mean Platelet Volume 8.3 fL (7.4-10.4); Monocytes # 0.5 10^3/uL (0.2-0.9); Monocytes % 8.5 %; Neutrophils # 3.17 10^3/uL (1.8-7.7); Neutrophils % 60.2 %; Nucleated Red Blood Cells % 0 %; Platelet Count 225 10^3/cmm (130-400); Red Blood Count 5.07 10^6/uL (4.1-5.3); Red Cell Distribution Width 12.8 % (12.1-15.1); White Blood Count 5.3 10^3/uL (4.0-10.0)
[2022-10-18 08:45] LABS: Alanine Aminotransferase 23 U/L (0-41); Albumin Level 4.6 g/dL (3.5-5.2); Alkaline Phosphatase 93 U/L (40-130); Amylase 52 U/L (28-100); Anion Gap 15.1 (5-19); Aspartate Amino Transferase 22 U/L (0-40); Blood Urea Nitrogen 13 mg/dL (6-20); Calcium 9.2 mg/dL (8.5-10.5); Carbon Dioxide 27 mmol/L (22-29); Chloride 101 mmol/L (98-107); Globulin 3.1 g/dL (1.3-4.6); Glomerular Filtration Rate 103.2 mL/min (90-130); Glucose 116 mg/dL (65-115); Lipase 33 U/L (13-60); Osmolality Calculated 287 mOsm/kg (285-295); Potassium 5.1 mmol/L (3.5-5.1); Sodium 138 mmol/L (136-145); Total Bilirubin 0.4 mg/dL (0.15-1.2); Total Protein 7.7 g/dL (6.6-8.7)
== END 2022-10-18 07:54 | disposition home or self-care (01) ==
PROVIDERS: PCP Family Medicine; Visit Provider Nurse Practitioner Family
DX: R10.9 Unspecified abdominal pain (principal)
CPT/HCPCS: 36415; 80053; 82150; 83690; 85025

== ENCOUNTER 2022-12-10 09:35 | Outpatient (CLI) | payer OTHER, SELFPAY ==
--- NOTE | 2022-12-10 | NM_ITS ---
WS: [id number] NUCLEAR MEDICINE HIDA SCAN WITH GALLBLADDER EJECTION FRACTION HISTORY: RUQ Pain COMPARISON: Ultrasound 10/23/2022 TECHNIQUE: The patient was intravenously injected with 7.5 mCi of TC99m Mebrofenin. Immediate imaging over the right upper quadrant was followed by 5 minute image and additional images for a total of 60 minutes. Normal uptake of radiotracer throughout the liver. Activity identified in the gallbladder at 40 minutes and well distended by 60 minutes. Activity in the proximal small bowel was seen by 10 minutes. Good washout of the radiotracer from the liver by 60 minutes. The patient then drank 8 ounces of Ensure Plus. Ejection fraction at 60 minutes was %. Normal GB ejec tion fraction is 35-75%. Post fatty meal symptoms: None. NM/NM hepatobiliary w phar* [id number] IMPRESSION: 1. Normal HIDA scan. 2. Normal gallbladder ejection fraction.
== END 2022-12-10 09:36 | disposition home or self-care (01) ==
LOC: RAD 09:35
PROVIDERS: PCP Nurse Practitioner Family; Visit Provider Nurse Practitioner Family
DX: R10.11 Right upper quadrant pain (principal)
CPT/HCPCS: 78227; A9537